=== PATIENT | male | born 1990 | race Caucasian/White ===

== ENCOUNTER → 2019-04-05 | Outpatient (CLI) | payer BC ==
[2019-04-05 12:30] LABS: Basophils % (A) 0 %; Eosinophils % (A) 1 %; HCT 51.3 % (39.0-53.0); HGB 16.7 gm/dL (13.0-17.5); Lymphocytes # (A) 0.9 k/uL (1.0-4.8); Lymphocytes % (A) 17 %; MCH 29.3 pg (25.0-35.0); MCHC 32.5 g/dL (31.0-37.0); MCV 90.1 fL (80.0-100.0); Mean Platelet Volume 7.1; Monocytes # (A) 0.4 k/uL (0-1.0); Monocytes % (A) 7 %; Neutrophils # (A) 3.9 k/uL (1.3-7.7); Neutrophils % (A) 72 %; Platelet Count 220 k/uL (150-450); RDW 12.8 % (11.5-15.5); WBC 5.4 k/uL (3.8-10.6)
[2019-04-05 17:56] LABS: Ferritin 37.8 ng/mL (22.0-322.0)
[2019-04-05 18:00] LABS: % Iron Saturation 42.22 (15.00-50.00); Albumin 4.7 g/dL (3.80-4.90); Albumin/Globulin Ratio 2.14 (1.60-3.17); Anion Gap 5.5 mmol/L (4.00-12.00); C Reactive Protein, High Sens 0.49 mg/L (0.000-3.000); Calcium 9.8 mg/dL (8.7-10.3); Carbon Dioxide 29.5 mmol/L (21.6-31.8); Globulin 2.2 g/dL (1.6-3.3); Non-African American GFR(CKD) 102.7 (60.0-200.0); Potassium 4.3 mmol/L (3.5-5.5); Total Bilirubin 1.1 mg/dL (0.3-1.2); Total Protein 6.9 g/dL (6.2-8.2)
[2019-04-05 21:55] LABS: Hemoglobin A1C 5.1 % (4.0-6.0)
== END | disposition home or self-care (01) ==
LOC: LABWHC1 11:46
PROVIDERS: ATTEND Psychiatry & Neurology Psychiatry
DX: E11.65 Type 2 diabetes mellitus with hyperglycemia (principal); R53.82 Chronic fatigue, unspecified; D89.89 Other specified disorders involving the immune mechanism, not elsewhere classified; R79.82 Elevated C-reactive protein (CRP); D50.9 Iron deficiency anemia, unspecified; E55.9 Vitamin D deficiency, unspecified; E56.9 Vitamin deficiency, unspecified; M81.0 Age-related osteoporosis without current pathological fracture; E03.9 Hypothyroidism, unspecified; E06.3 Autoimmune thyroiditis; K90.9 Intestinal malabsorption, unspecified; R79.0 Abnormal level of blood mineral; E53.8 Deficiency of other specified B group vitamins
CPT/HCPCS: 36415; 80053; 82306; 82607; 82728; 83036; 83540; 83550; 83735; 84443; 84481; 84630; 85025; 86141